=== PATIENT | female | born 1975 | race Asian ===

== ENCOUNTER 2019-04-19 19:32 | Emergency (ER) | payer OTHER ==
[2019-04-19 19:42] VITALS: PULSE 84; TEMP 97.8; BMI 32.1
[2019-04-19] MEDS ORDERED: cloNIDine HCL 0.1 MG TABLET PO ONE (20:11)
[2019-04-19] MEDS ORDERED: cloNIDine HCL 0.1 MG TABLET ONE (20:15)
[2019-04-19 20:38] LABS: BASO % 0.9 % (0-2.0); EOS % 0.7 % (0-4.5); HEMATOCRIT 40.3 % (32.4-45.2); HEMOGLOBIN 13.5 GM/dl (10.7-15.3); LYMPH % 32.5 % (8-40); MCH 31.9 pg (25.7-33.7); MCHC 33.6 g/dl (32.0-36.0); MEAN CELL VOLUME 94.9 fl (80-96); MEAN PLT VOLUME 7.9 fl (7.5-11.1); MONO % 6.1 % (3.8-10.2); NEUT % 59.8 % (42.8-82.8); PLATELET COUNT 304 K/MM3 (134-434); RBC 4.24 M/mm3 (3.60-5.2); RDW 12.1 % (11.6-15.6); WHITE BLOOD COUNT 7.9 K/mm3 (4.0-10.8)
[2019-04-19 20:46] LABS: ALBUMIN 4.1 g/dl (3.4-5.0); BILIRUBIN,TOTAL 0.5 mg/dl (0.2-1); CALCIUM 8.7 mg/dl (8.5-10); CREATININE 0.7 mg/dl (0.55-1.3); POTASSIUM 4.1 mmol/L (3.5-5.1); TOT PROT 7.3 g/dl (6.4-8.2)
[2019-04-19 21:09] VITALS: BP 145/105
--- NOTE | 2019-04-20 04:48 | PDOC ---
Documentation entered by Vangie Palmer SCRIBE, acting as scribe for Mary Beth Teixeira MD. Mary Beth Teixeira MD: This documentation has been prepared by the Spencer burns Brenda, SCRIBE, under my direction and personally reviewed by me in its entirety. I confirm that the documentation accurately reflects all work, treatment, procedures, and medical decision making performed by me. History of Present Illness - General Chief Complaint: Blood Pressure Problem Stated Complaint: HTN Time Seen by Provider: 04/19/19 19:33 History Source: Patient Exam Limitations: No Limitations - History of Present Illness Initial Comments: 04/19/19 19:53 The patient is a 43 year old female with a significant past medical history of preeclampsia ( 19 years ago) and vertigo who presents with hypertension. 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 and had been feeling "off" stating she felt a constant posterior non-radiating neck pain since 12:00pm, which she described as heaviness and 4/10 in severity. Due to symptoms, she decided to take her blood pressure. noting that at 3:00pm it was 152/92. She then states checking it again at 3:30pm, at which time it was 132/ 92. She then reports going to urgent care for further evaluation, noting her BP to be 169/99 and she was advised to proceed to the ED. Patient had a normal EKG at Urgent care. The patient denies chest pain, shortness of breath, palpitations, headache and dizziness. Denies fever, chills, nausea, vomiting, diarrhea and constipation. Denies any urinary symptoms. Allergies: NKA Past surgical history: Social history: No reported hx of tobacco use, alcohol use or illicit drug use. Family History: HTN and DM on both sides. PCP: [facility] Past History - Past Medical History Allergies/Adverse Reactions: Allergies Allergy/AdvReac Type Severity Reaction Status Date / Time No Known Allergies Allergy Verified 11/23/12 12:35 Home Medications: Ambulatory Orders No Home Medications 11/15/12 Amlodipine Besylate [Norvasc -] 5 mg PO DAILY #10 tablet 04/19/19 Anemia: No Asthma: No Cancer: No Cardiac Disorders: No CVA: No COPD: No CHF: No Dementia: No Diabetes: No GI Disorders: No Disorders: No HTN: No Hypercholesterolemia: No Liver Disease: No Seizures: No Thyroid Disease: No - Surgical History Abdominal Surgery: No Appendectomy: No Cardiac Surgery: No Cholecystectomy: No Lung Surgery: No Neurologic Surgery: No Orthopedic Surgery: No - Reproductive History (#): 3 Para: 2 Therapeutic (s) & number: No Spontaneous : 0 - Psycho Social/Smoking Cessation Hx Smoking Status: No Smoking History: Never smoked Have you smoked in the past 12 months: No Number of Cigarettes Smoked Daily: 0 Hx Alcohol Use: No Drug/Substance Use Hx: No Substance Use Type: None Hx Substance Use Treatment: No Review of Systems - Review of Systems Able to Perform ROS?: Yes Comments:: 04/19/19 20:15 GENERAL/CONSTITUTIONAL: No fever or chills. No weakness. HEAD, EYES, EARS, NOSE AND THROAT: No change in vision. No ear pain or discharge. No sore throat. CARDIOVASCULAR: No chest pain or shortness of breath. RESPIRATORY: No cough, wheezing, or hemoptysis. GASTROINTESTINAL: No nausea, vomiting, diarrhea or constipation. GENITOURINARY: No dysuria, frequency, or change in urination. MUSCULOSKELETAL: (+) Neck pain. No joint or muscle swelling or pain. No back pain. SKIN: No rash NEUROLOGIC: No headache, loss of consciousness, or change in strength/sensation. ENDOCRINE: No increased thirst. No abnormal weight change. HEMATOLOGIC/LYMPHATIC: No anemia, easy bleeding, or history of blood clots. ALLERGIC/IMMUNOLOGIC: No hives or skin allergy. *Physical Exam - Vital Signs Last Vital Signs Temp Pulse Resp BP Pulse Ox 97.8 F 84 16 145/105 H 100 04/19/19 19:37 04/19/19 19:37 04/19/19 19:37 04/19/19 21:08 04/19/19 19:37 - Physical Exam 04/19/19 20:14 GENERAL: Awake, alert, and fully oriented, in no acute distress HEAD: No signs of trauma EYES: PERRLA, EOMI, sclera anicteric, conjunctiva clear ENT: Auricles normal inspection, hearing grossly normal, nares patent, oropharynx clear without exudates. Moist mucosa NECK: Normal ROM, supple, no lymphadenopathy, JVD, or masses LUNGS: Breath sounds equal, clear to auscultation bilaterally. No wheezes, and no crackles HEART: Regular rate and rhythm, normal S1 and S2, no murmurs, rubs or gallops ABDOMEN: Soft, nontender, normoactive bowel sounds. No guarding, no rebound. No masses EXTREMITIES: Normal range of motion, no edema. No clubbing or cyanosis. No cords, erythema, or tenderness NEUROLOGICAL: Cranial nerves II through XII grossly intact. Normal speech, normal gait SKIN: Warm, Dry, normal turgor, no rashes or lesions noted. ED Treatment Course - LABORATORY CBC & Chemistry Diagram: 04/19/19 20:15 04/19/19 20:15 - ADDITIONAL ORDERS Additional order review: Laboratory Results 04/19/19 20:15 Sodium 132 L Potassium 4.1 Chloride 104 Carbon Dioxide 23 Anion Gap 5 L BUN 15.0 Creatinine 0.7 Est GFR (CKD-EPI)AfAm 121.27 Est GFR (CKD-EPI)NonAf 104.64 Random Glucose 96 Calcium 8.7 Total Bilirubin 0.5 AST 21 ALT 19 Alkaline Phosphatase 69 Total Protein 7.3 Albumin 4.1 04/19/19 20:15 RBC 4.24 MCV 94.9 MCHC 33.6 RDW 12.1 MPV 7.9 Neutrophils % 59.8 Lymphocytes % 32.5 Monocytes % 6.1 Eosinophils % 0.7 Basophils % 0.9 - Medications Given in the ED: ED Medications Discontinued Medications Generic Name Dose Route Start Last Admin Trade Name Freq PRN Reason Stop Dose Admin Clonidine 0.1 mg 04/19/19 20:11 04/19/19 20:21 Catapres - PO 04/19/19 20:12 0.1 mg ONCE ONE Administration Medical Decision Making - Medical Decision Making As noted above, this 43-year-old woman with a history of preeclampsia but no other hypertension that has been treated (strong family history of hypertension ) is referred here from urgent care center where she was found to be hypertensive. Patient had felt posterior neck discomfort earlier in the day and blood pressure was taken at work (outpatient [employer]). This was found to be elevated and measurements were progressively higher after patient presented to urgent care after work. As noted above, twelve-lead electrocardiogram at the urgent care was negative for abnormalities (patient brought copy of EKG with her). Patient has no other symptoms currently. Exam as noted. Because of the progressive nature of her blood pressure measurements today and the diastolic reading of 122 mmHg obtained here on presentation, patient will have baseline CBC and chemistry profile performed to evaluate for end-organ complications of HTN. Meanwhile, patient given clonidine 0.1 mg orally to lower her pressure mildly. Patient continued to feel comfortable without development of new symptoms. Laboratory evaluation is essentially normal except for minimal decrease of sodium level to 131. Clonidine 0.1 mg lower the patient's blood pressure (105mmHg diastolic). Patient will be discharged home with instructions to decrease salt intake in her diet and to follow-up with her doctor within the next 3 to 4 days. Since the patient was unsure how quickly she could follow-up with her general medical doctor, a small (#10) prescription for Norvasc 10 mg will be sent to her pharmacy. If the wait for follow-up appointment is longer than expected, she should start an antihypertensive Norvasc 10 mg daily. She should return to the emergency room if she has shortness of breath, chest pain, palpitations, severe headache Discharge - Discharge Information Problems reviewed: Yes Clinical Impression/Diagnosis: Hypertension Qualifiers: Hypertension type: unspecified Qualified Code(s): I10 - Essential (primary) hypertension Condition: Stable Disposition: HOME - Additional Discharge Information Prescriptions: Amlodipine Besylate [Norvasc -] 5 mg PO DAILY #10 tablet - Follow up/Referral - Patient Discharge Instructions Patient Printed Discharge Instructions: DI for High Blood Pressure Additional Instructions: Rest, drink plenty fluids Avoid excessive salt in your diet Follow-up with your general doctor within the next 5 days as planned Return to ER if you have chest pain, shortness of breath, palpitations or persistent severe headache If you difficulty in arranging prompt appointment with your doctor, begin Norvasc 5 mg daily - Post Discharge Activity Work/Back to School Note: Back to Work
== END 2019-04-19 21:41 | disposition home or self-care (01) ==
LOC: FER 19:32
DX: I10 Essential (primary) hypertension (principal)
CPT/HCPCS: 36415; 80053; 85025; 99281-25; J0735